=== PATIENT | female | born 1980 | race Two or more races ===

== ENCOUNTER 2017-09-21 17:31 | Emergency (ER) | payer MEDICAID, OTHER ==
--- NOTE | 2017-09-21 17:53 | ED Physician Chart ---
ED Chief Complaint/HPI - Patient Information Date Seen:: 09/21/17 Time Seen:: 18:35 Chief Complaint:: RIGHT SHOULDER PAIN 3 DAYS History of Present Illness:: THIS 36-YEAR-OLD FEMALE PRESENTS WITH A THREE-DAY HISTORY OF PAIN IN HER RIGHT SHOULDER. SHE HAD AN EPISODE OF EXACTLY THE SAME PAIN 4 YEARS AGO, AND THAT TIME IT LASTED FOR 3 DAYS. THE PATIENT HAS BEEN TAKING IBUPROFEN AND NAPROSYN FOR THE PAIN WITH MINIMAL RELIEF. DENIES ANY INJURY OR UNUSUAL ACTIVITY THAT COULD ACCOUNT FOR HER NEW SYMPTOMS. NO RADIATION OF THE PAIN INTO THE NECK OR DOWN INTO THE HANDS AND SHE HAS NO PARESTHESIAS IN THE RIGHT UPPER EXTREMITY. AN X-RAY WAS TAKEN 4 YEARS AGO AND SHOWED SOME ABNORMALITIES, THE NATURE OF WHICH THE PATIENT IS UNSURE. THE PATIENT DENIES ANY OTHER MEDICAL PROBLEMS. SHE DENIES ANY RECENT FEVER OR CHILLS BUT DOES NOTE THAT SHE HAD SOME DIAPHORESIS TODAY. THE PAIN IN THE SHOULDER IS WORSE WHEN SHE IS IN THE COLD AND IMPROVES WHEN SHE IS IN THE WARM ENVIRONMENT. MOVEMENT OF THE SHOULDER ALSO MAKES THE PAIN WORSE. Allergies:: Allergies Allergy/AdvReac Type Severity Reaction Status Date / Time morphine Allergy Verified 09/21/17 17:36 Vitals:: Vital Signs - 8 hr 09/21/17 17:37 Temp 99.5 F HR 116 RR 18 BP 148/87 O2 Sat % 98 Review:: Nurse's Note Reviewed ED Review of Systems - Review of Systems General/Constitutional: No fever, No chills, No weakness, Diaphoresis, Loss of appetite Skin: No rash, No bruising Head: No headache, No light-headedness Eyes: No loss of vision, No pain, No diplopia ENT: No earache, No sore throat, No tinnitus Neck: No swelling, No stiffness, No mass noted (PATIENT WITH SOME PAIN IN THE RIGHT POSTERIOR NECK.) Cardio Vascular: No chest pain Pulmonary: No SOB, No cough, No wheezing GI: No nausea, No vomiting, No diarrhea, No hematemesis G/U: No dysuria, No hematuria [employer]: No vaginal discharge, No abnormal vaginal bleed Musculoskeletal: Bone or joint pain (CONFINED TO THE RIGHT SHOULDER.), No back pain, No muscle pain Psychiatric: No prior psych history, No depression, No anxiety, No suicidal ideation Hematopoietic: No bruising Allergic/Immuno: No urticaria, No angioedema Neurological: No syncope, No weakness, No headache, No seizure, Dizziness (her dizziness is described as difficulty with balance and is not vertigo.) ED Past Medical History - Past Medical History Past Medical History: Other (Blood pressure, no diabetes, no heart disease are he was) Social History: Non Smoker, No Alcohol, No Drug Use, , Other (lives with her family) Employment:: Unemployed Surgical History: Psychiatricy History: Depression Family Medical History - Family Member Mother History Unknown: Yes Ethnicity: Living Status: Still Living ED Physical Exam - Physical Examination General/Constitutional: Awake, Well-developed, well-nourished, Alert, GCS 15, Non-toxic appearing, Ambulatory Other Gen/Cons comments:: MILD DISTRESS FROM HER RIGHT SHOULDER PAIN. THE PATIENT POINTS TO AN AREA DIRECTLY OVER THE BICIPITAL TENDON AND THERE IS TENDERNESS OF THE TENDON. Head: Atraumatic Eyes: PERRL, EOMI Skin: No skin lesions ENMT: External ears, nose nl Neck: Nontender, Full ROM w/o pain, No nuchal rigidity, No mass, No stridor Respiratory: Nl effort/Exclusion, Clear to Auscultation, No Wheeze/Rhonchi/Rales Other Respiratory comments:: JUST TO PULSES WERE INTACTIN ALL FOUR EXTREMITIES.NORMAL CAPILLARY REFILL. Cardio Vascular: RRR, No murmur, gallop, rubs, NL S1 S2 : No CVA tenderness Other Extremities comments:: THE PATIENT HAS LIMITEDRANGE OF MOTION IN THE RIGHT SHOULDER,ESPECIALLYWITH THE ABDUCTIONAND EXTERNAL ROTATION.THERE ISTENDERNESS ON PALPATION OVER THE BICIPITAL TENDONAND THAT IS THE MAIN SOURCE OF PAIN. DISTAL NEURO/CIRC IS INTACT IN THE RIGHT UPPER EXTREMITY. (MOTORAND SENSORYTO LIGHT TOUCH) Neuro/Psych: Judgement/insight normal ED Labs/Radiology/EKG Results - Lab Results Results: THREE VIEW X-RAYOF THE RIGHT SHOULDER:NO FRACTURESAND NO DISLOCATION.NO AC SEPARATION.DIFFICULT TO TELL IF THERE ARE CALCIFICATION OF THE BICIPITAL TENDON.IMPRESSION: NO ACUTE DRAMATIC FINDINGS. NO LABORATORY STUDIES WERE INDICATED. ED Assessment - Assessment General Assessment: CASE SUMMARY: THIS 36-YEAR-OLD FEMALEPRESENTED WITH A THREE DAY HISTORYA PAIN IN THE RIGHT SHOULDER.SHE HAD NO ASSOCIATED INJURIES, TRAUMA OR UNUSUAL ACTIVITY. THE PAIN WAS IDENTICALTO AN EPISODE SHE HADFOUR YEARS AGO.ON PHYSICAL EXAMINATION,SHE HAD POINT TENDERNESSOVER THE BICIPITAL TENDON.THIS AREA WAS INJECTEDWITH 5 MLOF 2% LIDOCAINE.THE PATIENT HAD MODERATE RELIEF OF THE PAINAND WAS DISCHARGED WITH THE SLINGFOR THE RIGHT UPPER EXTREMITY.SHE WAS ADVISED TO FOLLOW UP WITH HER PRIMARY CARE PHYSICIANFOR POSSIBLEORTHOPEDIC REFERRAL.SHE WAS FURTHER ADVISED TO CONTINUE TAKING IBUPROFE NNOT TO [id number] MG PER DAY. MDM DDX FOR RIGHT SHOULDER PAIN: NOT FRACTURE OF THE HUMERAL HEAD OR SCAPULA.THIS IS BASED ON NEGATIVE X-RAY STUDIES. NOT JUST LOCATION OF THE SHOULDER BASED ON PHYSICAL EXAM AND X-RAY STUDIES. NOT AC SEPARATION BASED ON X-RAY STUDIES. Laceration Type:: Simple (LIDOCAINE INJECTION OVER THEBICIPITAL TENDON.COLOR RATED [place] IMPROVED) ED Septic Shock - . Is Septic Shock (SBP<90, OR Lactate>4 mmol\L) present?: No - <6hrs of presentation: Vital Signs: Vital Signs - 8 hr //18 17:37 Temp 99.5 F HR 116 RR 18 BP 148/87 O2 Sat % 98 ED Reassessment (Disposition) - Reassessment Reassessment Condition:: Improved - Diagnosis Diagnosis:: BICIPITAL TENDINITIS ED Discharge Plan - Patient Disposition Admit/Discharge/Transfer: PT DISCHARGED HOME Condition at Disposition: Improved Instructions: Bicipital Tendonitis
[2017-09-21] MEDS ORDERED: Lidocaine 2% 5mL Abboject IVP ONE ×2 (18:05→18:06)
--- NOTE | 2017-09-22 08:17 | Diagnostic Imaging Report ---
Right shoulder (3 views) HISTORY: Pain Normal bone density. No focal lesions. No fractures. No dislocation. A small calcific density is noted in the soft tissues adjacent to the lateral aspect of the humeral head. Findings consistent with calcific tendinitis. IMPRESSION: 1. Small calcification within the soft tissues adjacent to the lateral aspect humeral head. Findings are consistent with calcific tendinitis. 2. No acute focal bony abnormalities
== END 2017-09-21 19:03 | disposition home or self-care (01) ==
LOC: ER 17:31
DX: M75.21 Bicipital tendinitis, right shoulder (principal); Z88.5 Allergy status to narcotic agent
CPT/HCPCS: 73030-TC-RT; 96374; X6470; Z7502